=== PATIENT | female | born 1995 | race Caucasian/White ===

== ENCOUNTER 2016-06-29 03:33 | Emergency (ER) | payer SELFPAY ==
[2016-06-29 04:01] VITALS: BMI 19.8
[2016-06-29] MEDS ORDERED: SODIUM CHLORIDE 0.9% 1000 ML INFUS.BAG IV ONE (04:01)
--- NOTE | 2016-06-29 04:01 | PDOC ---
History of Present Illness - General History Source: Patient Exam Limitations: No Limitations - History of Present Illness Initial Comments: 06/29/16 04:40 The patient is a 20 year old female, LMP one month ago, with a significant past medical history of eating disorders, anxiety, and depression, who presents to the ER with nausea, vomiting, chills, diarrhea, and abdominal pain for one day. Patient reports having at least 20 episodes of nonbilious/nonbloody vomiting and several episodes of nonbloody diarrhea. Patient also reports having accompanied diffuse abdominal pain. She says her aunt and father are in the same household and have similar symptoms. Patient also states she has had several episodes of losing consciousness secondary to the symptoms. Denies , changes in diet, drug/alcohol use Denies fever, chills Denies headache Denies weakness or numbness <Jagruti Carrasco - Last Filed: 06/29/16 06:31> <Dottie Victor - Last Filed: 06/29/16 06:47> - General Chief Complaint: Nausea/Vomiting Stated Complaint: DIARRHEA, VOMITING Time Seen by Provider: 06/29/16 04:01 Past History <Jagruti Carrasco - Last Filed: 06/29/16 06:31> - Psycho/Social/Smoking Cessation Hx Suicidal Ideation: No Smoking History: Current every day smoker Have you smoked in the past 12 months: Yes Information on smoking cessation initiated: No Hx Alcohol Use: No Drug/Substance Use Hx: No <Dottie Victor - Last Filed: 06/29/16 06:47> - Past Medical History Allergies/Adverse Reactions: Allergies Allergy/AdvReac Type Severity Reaction Status Date / Time No Known Allergies Allergy Verified 06/29/16 03:57 Home Medications: Ambulatory Orders NK [No Known Home Medication] 06/29/16 Review of Systems - Review of Systems Able to Perform ROS?: Yes Comments:: 06/29/16 04:40 CONSTITUTIONAL: Present: (+) chills Absent: fever, no fatigue EYES: Absent: visual changes ENT: Absent: ear pain, no sore throat CARDIOVASCULAR: Absent: chest pain, no palpitations RESPIRATORY: Absent: cough, no SOB GI: Present: (+) nausea, vomiting, diarrhea, abdominal pain Absent: no constipation GENITOURINARY: Absent: dysuria, no frequency, no hematuria MUSCULOSKELETAL: Absent: back pain, no arthralgia, no myalgia SKIN: Absent: rash NEURO: Absent: headache <Cos,Jagruti - Last Filed: 06/29/16 06:31> *Physical Exam - Vital Signs Last Vital Signs Temp Pulse Resp BP Pulse Ox 78 18 88/63 100 06/29/16 03:55 06/29/16 03:55 06/29/16 03:55 06/29/16 03:55 - Physical Exam Comments: 06/29/16 04:41 GENERAL: Pale, extremely thin. Well-appearing, well-nourished. No apparent distress. No orthostatic hypotension. HEENT: Perioral pallor. Normocephalic, atraumatic. PERRL, EOM intact. CARDIOVASCULAR: Normal S1, S2. Regular rate and rhythm. PULMONARY: Clear to auscultation bilaterally. ABDOMEN: Bedside US shows intra-abdominal free fluid. Soft, non-distended, non-tender. EXTREMITIES: Normal ROM in all four extremities. No gross deformities. No swelling in the bilateral lower extremities. SKIN: Warm, dry. No rash NEUROLOGICAL: No focal neurological deficits. <CosJagruti - Last Filed: 06/29/16 06:31> - Vital Signs Last Vital Signs Temp Pulse Resp BP Pulse Ox 78 18 88/63 100 06/29/16 03:55 06/29/16 03:55 06/29/16 03:55 06/29/16 03:55 <Dottie Victor - Last Filed: 06/29/16 06:47> Heart Score/ECG Review - [place] Comment: 06/29/16 06:32 EKG read and reviewed by Dr. Victor: Flipped T waves in V2 and V3. Normal sinus rhythm. <Cos,Jagruti - Last Filed: 06/29/16 06:31> ED Treatment Course - LABORATORY CBC & Chemistry Diagram: 06/29/16 04:00 06/29/16 04:00 - ADDITIONAL ORDERS Additional order review: Laboratory Results 06/29/16 04:00 Serum , Qual Negative 06/29/16 04:00 RBC 4.55 MCV 90.7 MCHC 33.4 RDW 13.0 MPV 8.0 Neutrophils % 85.4 H Lymphocytes % 9.6 Monocytes % 3.9 Eosinophils % 0.7 Basophils % 0.4 - Medications Given in the ED: ED Medications Discontinued Medications Generic Name Dose Route Start Last Admin Trade Name Marisol PRN Reason Stop Dose Admin Metoclopramide HCl 10 mg 06/29/16 04:17 06/29/16 04:22 Reglan Injection - IVPB 06/29/16 04:18 10 mg ONCE ONE Administration Sodium Chloride 2,000 ml 06/29/16 04:01 06/29/16 04:05 Normal Saline - IV 06/29/16 04:02 2,000 ml ONCE ONE Administration <Jagruti Carrasco - Last Filed: 06/29/16 06:31> - LABORATORY CBC & Chemistry Diagram: 06/29/16 04:00 06/29/16 04:00 <Dottie Victor - Last Filed: 06/29/16 06:47> Medical Decision Making - Medical Decision Making 06/29/16 06:23 Pt came in with 1 full day of vomiting -20 episode vomiting and multiple episodes of diarrhea, blacked out at one point. Pt is pale with perioral apllor that is concering to look at, so I checked a fast exam-- no intraperitoneal free fluid on rapid bedside exam. Pt has a thin stripe of her uterus. She has non prominent ovary. Pt appears malnourished and she is extremely thin -- BMI is 19.8 Pt has no fever and she has no abd pain, flank pain or chest pain. No lung pain. Neurologically intact. Pt was hydrated with NSS2L and we started a banana bag thereafter. She has normal labs; only a potassium of 3.4 06/29/16 06:46 CXR is pending. EKG demonstrates V1-V3 flipped t waves; unclear if this is old or new, as she has never been here before. Pt will be signed out to the day ER doc, who can reassess and disposition her. <Dottie Victor - Last Filed: 06/29/16 06:47> *DC/Admit/Observation/Transfer - Attestations Scribe Attestion: 06/29/16 04:46 Documentation prepared by Jagruti Carrasco, acting as veterinary medical officer for Dottie Victor MD. <Jagruti Carrasco - Last Filed: 06/29/16 06:31> <Dottie Victor - Last Filed: 06/29/16 06:47> Diagnosis at time of Disposition: Viral gastroenteritis, Dehydration, Eating disorder
[2016-06-29 04:07] LABS: BASOPHIL 0.4 % (0-2.0); EOSINOPHIL 0.7 % (0-4.5); MCH 30.3 pg (25.7-33.7); MCHC 33.4 g/dl (32.0-36.0); MEAN CELL VOLUME 90.7 fl (80-96); NEUTROPHILS 85.4 % (42.8-82.8); PLATELET COUNT 353 K/MM3 (134-434); WHITE BLOOD COUNT 16.5 K/mm3 (4.0-10.0)
[2016-06-29] MEDS ORDERED: METOCLOPRAMIDE HCL INJECTION 10 MG/2 ML VIAL IVPB ONE (04:17)
[2016-06-29] MEDS ORDERED: FAMOTIDINE 20 MG/50 ML IVPB 50 ML IVPB ONE ×2 (04:18→04:25)
[2016-06-29] MEDS ORDERED: METOCLOPRAMIDE HCL INJECTION 10 MG/2 ML VIAL ONE (04:25)
[2016-06-29 04:39] LABS: ALBUMIN 4.4 g/dl (3.4-5.0); ALK PHOS 54 U/L (45-117); ANION GAP 13 (8-16); BILIRUBIN,TOTAL 0.4 mg/dL (0.2-1.0); CALCIUM 9.2 mg/dL (8.5-10.1); CO2 20 mmol/L (21-32); COCKROFT - GAULT 66.9035; GLUCOSE,RANDOM 164 mg/dL (74-106); SGOT/AST 16 U/L (15-37); SGPT/ALT 17 U/L (12-78); TOT PROT 7.9 g/dl (6.4-8.2)
[2016-06-29] MEDS ORDERED: FOLIC ACID INJECTION - 1 MG, THIAMINE HCL 100 MG, MULTIVIT INJECTION ADULT 10 ML in SOD... IVPB ONE (04:47)
[2016-06-29] MEDS ORDERED: ONDANSETRON 4 MG/2 ML VIAL IVPUSH ONE (08:46)
[2016-06-29] MEDS ORDERED: ONDANSETRON 4 MG/2 ML VIAL ONE (08:59)
[2016-06-29 09:03] LABS: URINE APPEARANCE SLCLOUDY; URINE BILIRUBIN NEGATIVE (NEGATIVE); URINE BLOOD NEGATIVE (NEGATIVE); URINE COLOR YELLOW; URINE GLUCOSE (UA) NEGATIVE (NEGATIVE); URINE KETONE 1+ (NEGATIVE); URINE LEUK ESTERASE NEGATIVE (NEGATIVE); URINE NITRITE NEGATIVE (NEGATIVE); URINE PROTEIN NEGATIVE (NEGATIVE); URINE UROBILINOGEN NEGATIVE E.U./dl (0.2-1.0)
--- NOTE | 2016-06-29 10:36 | PDOC ---
*Physical Exam - Vital Signs Last Vital Signs Temp Pulse Resp BP Pulse Ox 93 H 16 113/65 97 06/29/16 07:14 06/29/16 07:14 06/29/16 07:14 06/29/16 07:14 ED Treatment Course - LABORATORY CBC & Chemistry Diagram: 06/29/16 04:00 06/29/16 04:00 - ADDITIONAL ORDERS Additional order review: Laboratory Results 06/29/16 06/29/16 06/29/16 08:46 04:00 04:00 Sodium 139 Potassium 3.4 L Chloride 106 Carbon Dioxide 20 L Anion Gap 13 BUN 8 Creatinine 1.0 Creat Clearance w eGFR > 60 Random Glucose 164 H Calcium 9.2 Total Bilirubin 0.4 AST 16 ALT 17 Alkaline Phosphatase 54 Total Protein 7.9 Albumin 4.4 Lipase 89 Serum , Qual Negative Urine Color Yellow Urine Appearance Slcloudy Urine pH 5.0 Urine Protein Negative Urine Glucose (UA) Negative Urine Ketones 1+ H Urine Blood Negative Urine Nitrite Negative Urine Bilirubin Negative Urine Urobilinogen Negative Ur Leukocyte Esterase Negative 06/29/16 04:00 RBC 4.55 MCV 90.7 MCHC 33.4 RDW 13.0 MPV 8.0 Neutrophils % 85.4 H Lymphocytes % 9.6 Monocytes % 3.9 Eosinophils % 0.7 Basophils % 0.4 - Medications Given in the ED: ED Medications Discontinued Medications Generic Name Dose Route Start Last Admin Trade Name Freq PRN Reason Stop Dose Admin Famotidine/Sodium Chloride 50 mls @ 100 mls/hr 06/29/16 04:18 06/29/16 04:22 Pepcid 20 Mg Premixed Ivpb - IVPB 06/29/16 04:47 100 mls/hr ONCE ONE Administration Metoclopramide HCl 10 mg 06/29/16 04:17 06/29/16 04:22 Reglan Injection - IVPB 06/29/16 04:18 10 mg ONCE ONE Administration Ondansetron HCl 4 mg 06/29/16 08:46 06/29/16 09:03 Zofran Injection IVPUSH 06/29/16 08:47 4 mg ONCE ONE Administration Sodium Chloride 2,000 ml 06/29/16 04:01 06/29/16 04:05 Normal Saline - IV 06/29/16 04:02 2,000 ml ONCE ONE Administration Progress Note - Progress Note Progress Note: The patient was endorsed to me at [address] Ramires pending labs and reevaluation. The urine analysis is negative. Chest x-ray is negative. The patient appears to be feeling improved and is tolerating by mouth. The plan is to discharge home, follow up with primary care physician and return to the emergency department if symptoms persist, worsen, or new symptoms arise. *DC/Admit/Observation/Transfer Diagnosis at time of Disposition: Viral gastroenteritis, Dehydration, Eating disorder - Discharge Dispostion Disposition: HOME Condition at time of disposition: Stable Admit: No - Patient Instructions Printed Discharge Instructions: DI for Vomiting -- Adult, DI for Diarrhea and Traveler's Diarrhea -- Adult Additional Instructions: You're being prescribed Zofran for nausea. You may take 1 tablet every 6 hours as needed for nausea. Please follow-up with a primary care physician within one week or return to the emergency department if your symptoms persist, worsen, or new symptoms arise.
[2016-06-29 10:46] VITALS: BP 102/48; PULSE 88; TEMP 98.5
--- NOTE | 2016-06-29 12:04 | EKG ---
Test Reason : Blood Pressure : / mmHG Vent. Rate : 085 BPM Atrial Rate : 085 BPM P-R Int : 142 ms QRS Dur : 090 ms QT Int : 374 ms P-R-T Axes : 053 095 070 degrees QTc Int : 445 ms NORMAL SINUS RHYTHM RIGHTWARD AXIS T WAVE ABNORMALITY, CONSIDER ANTERIOR ISCHEMIA ABNORMAL ECG NO PREVIOUS ECGS AVAILABLE Confirmed by MD DAHIANA, KATARINA ([id number]) on 06/29/2016 12:04:50 PM Referred By: Confirmed By:KATARINA TALBOT MD
== END 2016-06-29 11:01 | disposition home or self-care (01) ==
LOC: JER 03:33
PROC: 3E033GC Introduction of Other Therapeutic Substance into Peripheral Vein, Percutaneous Approach (ICD-10-PCS; principal; 2016-06-29)
PROC: 3E033GC Introduction of Other Therapeutic Substance into Peripheral Vein, Percutaneous Approach (ICD-10-PCS; 2016-06-29)
DX: A08.4 Viral intestinal infection, unspecified (principal); B97.89 Other viral agents as the cause of diseases classified elsewhere; F17.210 Nicotine dependence, cigarettes, uncomplicated; E86.0 Dehydration
CPT/HCPCS: 36415; 71010-TC; 80053; 81003; 83690; 84703; 85025; 93005; 93010; 99284-25